=== PATIENT | female | born 1970 | race Asian ===

== ENCOUNTER → 2017-01-23 | Outpatient (CLI) | payer BC | LOC: FIMAGING 12:35 | PROVIDERS: ATTEND Obstetrics & Gynecology Gynecology | DX: Z12.31 Encounter for screening mammogram for malignant neoplasm of breast (principal) | CPT/HCPCS: G0202 ==

== ENCOUNTER → 2018-01-26 | Outpatient (CLI) | payer BC | LOC: FIMAGING 12:51 | PROVIDERS: ATTEND Obstetrics & Gynecology Gynecology | DX: Z12.31 Encounter for screening mammogram for malignant neoplasm of breast (principal) ==

== ENCOUNTER → 2019-02-14 | Outpatient (CLI) | payer BC | LOC: FIMAGING 14:13 | PROVIDERS: ATTEND Obstetrics & Gynecology Gynecology | DX: Z12.31 Encounter for screening mammogram for malignant neoplasm of breast (principal) ==

== ENCOUNTER → 2019-04-14 | Outpatient (CLI) | payer BC | LOC: FIMAGING 15:53 ==

== ENCOUNTER 2019-05-10 07:30 | Observation (INO) | payer BC | END 2019-05-11 18:26 | disposition home or self-care (01) | LOC: FIMAGING 07:30 → F3E 11:51 → FOB 13:38 ==